=== PATIENT | male | born 1965 | race Caucasian/White ===

== ENCOUNTER 2021-09-19 21:10 | Emergency (ER) | payer MEDICAID, OTHER ==
[~2021-09-19] VITALS: Ht 182.9 cm; Wt 77.1 kg
[2021-09-19 21:10] VITALS: BP 134/59
--- NOTE | 2021-09-19 21:35 | ED General ---
General Chief Complaint: General Problems/Pain Stated Complaint: WEAKNESS Source of Information: Patient, EMS History of Present Illness Date Seen by Provider: Sep 19, 2021 Time Seen by Provider: 21:10 Initial Comments 56-year-old male presenting by EMS with complaints of fatigue and general weakness. He states he has a history of bipolar disease and seizures. He takes medication for this but has not taken the seizure medicine today until just prior to EMS picking him up. He reports having walked from 435 area in [place] to here in [place] today. He was having pain and soreness in his feet from walking so much today. He had general muscle and body aches. He states that he had not eaten anything for the last 2 days. He had been evaluated by other paramedics in [place] and they had recommended that he get electrolytes and get somewhere the he could eat a meal. Patient is trying to walk to [facility] where he has a friend who is going to let him stay with them. Severity: Moderate Associated Systoms: No Chest Pain, No Cough, No Diaphoresis, No Fever/Chills, No Headaches, No Loss of Appetite; Malaise; No Nausea/Vomiting, No Rash, No Seizure, No Shortness of Air, No Syncope; Weakness (Generalized) Allergies and Home Medications Allergies Coded Allergies: Tegretol (Verified Allergy, Unknown, 09/20/21) Patient Home Medication List Home Medication List Reviewed: Yes Review of Systems Review of Systems Constitutional: see HPI; No chills, No fever EENTM: no symptoms reported Respiratory: no symptoms reported Cardiovascular: no symptoms reported Gastrointestinal: no symptoms reported Genitourinary: no symptoms reported Musculoskeletal: see HPI Skin: No rash Psychiatric/Neurological: See HPI Past [place] Hx Patient Social History Tobacco Use?: Yes Tobacco type used: Cigarettes Smoking Status: Current Everyday Smoker Substance use?: Yes Substance type: Marijuana Alcohol Use?: No Pt feels they are or have been: No Past Medical History Surgery/Hospitalization HX: Seizures, bipolar Physical Exam Vital Signs Vital Signs - First Documented 09/19/21 21:10 Temp 36.6 Pulse 70 Resp 16 B/P (MAP) 134/59 (84) Pulse Ox 98 O2 Delivery Room Air Capillary Refill : Height, Weight, BMI Height: '" Weight: lbs. oz. kg; BMI Method: General Appearance: No Apparent Distress, WD/WN HEENT: PERRL/EOMI, Pharynx Normal Neck: Full Range of Motion, Normal Inspection, Non Tender, Supple Respiratory: Chest Non Tender, Lungs Clear, Normal Breath Sounds, No Accessory Muscle Use, No Respiratory Distress Cardiovascular: Regular Rate, Rhythm, Normal Peripheral Pulses Gastrointestinal: Normal Bowel Sounds, No Pulsatile Mass, Non Tender, Soft Rectal: Deferred Extremity: Normal Capillary Refill, Normal Inspection, No Pedal Edema Neurologic/Psychiatric: Alert, Oriented x3, family centered specialist II-XII Norm as Tested Skin: Normal Color, Warm/Dry Progress/Results/Core Measures Suspected Sepsis SIRS Temperature: Pulse: Respiratory Rate: Blood Pressure / Mean: Results/Orders Vital Signs/I&O 09/19/21 21:10 Temp 36.6 Pulse 70 Resp 16 B/P (MAP) 134/59 (84) Pulse Ox 98 O2 Delivery Room Air Capillary Refill : Progress Note #1: Progress Note Offered to check labs on the patient and try some IV fluids for hydration. However patient stated he does not want to have labs done. He was just interested in getting something to eat and some electrolyte drinks. He felt that that and rest was what he really needed. With his exam and vital signs all benign well allow him to try and eat some food and drink here in the ED. If he has worsening symptoms or is not improving could discuss trying to check blood at that time. Progress Note #2: Progress Note Patient was eating and drinking here in the ED without difficulty. He was resting comfortably. Has he continued to have normal vital signs will discharge from the ED. Encouraged to establish care with primary provider and follow-up for continued concerns. take his medicines as prescribed. Departure Impression Primary Impression: Body aches Additional Impression: Fatigue Qualified Codes: T73.3XXA - Exhaustion due to excessive exertion, initial encounter Disposition: HOME, SELF-CARE Condition: Stable Departure-Patient Inst. Decision time for Depature: 22:47 Referrals: [facility] [place] Instructions: Fatigue ED Add. Discharge Instructions: Try to stay well hydrated and drink plenty of fluids and electrolyte drinks. Follow up with clinic for continued concerns All discharge instructions reviewed with patient and/or family. Voiced understanding. MARGARITA HUMPHREYS MD Sep 19, 2021 21:35
== END 2021-09-19 23:00 | disposition home or self-care (01) ==
LOC: ER FS 21:11
DX: R53.83 Other fatigue (principal); F17.210 Nicotine dependence, cigarettes, uncomplicated
CPT/HCPCS: 99281